=== PATIENT | male | born 1995 | race Two or more races ===

== ENCOUNTER 2025-03-01 20:53 | Emergency (ER) | payer MEDICAID ==
[~2025-03-01] VITALS: Ht 175.3 cm; Wt 108.0 kg
[2025-03-01 21:46] VITALS: O2SAT 99
[2025-03-02] MEDS: KETOROLAC 30MG/ML VIAL IM ONE
[2025-03-02 00:32] LABS: HEMATOCRIT. 45.5 % (42.0-52.0); HEMOGLOBIN. 15.2 g/dL (14.0-18.0); MEAN CORPUSCULAR HEMOGLOBIN 29.8 pg (28.0-32.0); MEAN CORPUSCULAR HGB CONC 33.5 g/dL (31.0-37.0); MEAN PLATELET VOLUME 8.4 fl (7.4-10.4); PLATELET 312 x1000/uL (130-400); RED BLOOD CELL COUNT 5.11 mill/uL (4.7-6.1); WHITE BLOOD COUNT 18.5 x1000/uL (4.5-11.0)
[2025-03-02 00:47] LABS: CHLORIDE 105 mEq/L (98-107); POTASSIUM 3.3 mEq/L (3.5-5.1); SODIUM 142 mEq/L (136-145)
[2025-03-02 00:48] LABS: CALCIUM 9.8 mg/dL (8.7-10.4); CARBON DIOXIDE 26 mEq/L (21-32)
[2025-03-02 00:50] LABS: DIFFERENTIAL COMMENT 1
[2025-03-02 00:53] LABS: CREATININE 0.9 mg/dL (0.6-1.3); GLUCOSE 107 mg/dL (70-105); UREA NITROGEN BLOOD 6 mg/dL (9-23)
[2025-03-02 00:54] LABS: TROPONIN I HIGH SENSITIVITY < 4 ng/L (3.0-53)
[2025-03-02] MEDS: HYDROXYZINE 25MG TABLET PO ONE (01:00)
[2025-03-02 02:37] LABS: TROPONIN I HIGH SENSITIVITY < 4 ng/L (3.0-53)
[2025-03-02 03:06] LABS: CLARITY URINE CLOUDY (CLEAR); COLOR URINE DARK YELLOW (YELLOW); GLUCOSE URINE NEGATIVE (NEGATIVE); KETONES URINE TRACE (NEGATIVE); LEUKOCYTE ESTERASE URINE NEGATIVE (NEGATIVE); NITRITE URINE NEGATIVE (NEGATIVE); OCCULT BLOOD URINE NEGATIVE (NEGATIVE); PH URINE 5.5 (4.5-8.0); PROTEIN URINE 2+ (NEGATIVE); SPECIFIC GRAVITY URINE 1.028 (1.005-1.030)
[2025-03-02 03:13] LABS: *AMPHETAMINES SCREEN URINE NEGATIVE (NEGATIVE); *BARBITURATES SCREEN URINE NEGATIVE (NEGATIVE); *BENZODIAZEPINES SCREEN URINE NEGATIVE (NEGATIVE); *COCAINE SCREEN URINE NEGATIVE (NEGATIVE); CANNABINOID URINE SCREEN NEGATIVE (NEGATIVE); ECSTASY MDMA SCREEN URINE NEGATIVE (NEGATIVE); METHADONE URINE SCREEN NEGATIVE (NEGATIVE); OPIATES URINE SCREEN NEGATIVE (NEGATIVE); PHENCYCLIDINE URINE SCREEN NEGATIVE (NEGATIVE)
[2025-03-02 03:51] LABS: WBC URINE 0-2 /hpf (0-2)
[2025-03-02] MEDS: KETOROLAC 30MG/ML VIAL IM NR (03:51)
[2025-03-02 03:52] LABS: BACTERIA URINE NONE SEEN; RBC URINE 0-2 /hpf (0-2); SQUAMOUS EPITHELIAL CELL URINE NONE SEEN /lpf (RARE/1+)
[2025-03-02] MEDS: HYDROXYZINE 25MG TABLET PO NR (03:55)
[2025-03-02 04:36] LABS: INFLUENZA TYPE A Presumptive Negative (Pres. Neg.); INFLUENZA TYPE B Presumptive Negative (Pres. Neg.)
[2025-03-02 04:37] LABS: RESPIRATORY SYNCYTIAL VIRUS Not Detected (Not Detectd)
[2025-03-02] MEDS: POTASSIUM CHLORIDE 20MEQ/PACKET PO ONE (04:58)
[2025-03-02 05:22] VITALS: BP 122/73; PULSE 98; RESP 18; TEMP 36.8; O2SAT 100
[2025-03-02 07:23] LABS: PLATELET ESTIMATE NORMAL
== END 2025-03-02 05:24 | disposition home or self-care (01) ==
LOC: ER 20:53
DX: D72.829 Elevated white blood cell count, unspecified (principal); Z20.822 Contact with and (suspected) exposure to COVID-19
CPT/HCPCS: 99285; 71045; 80048; 85025; 84484 ×2; 36415 ×2; 93005; 87426; 80305; 85379; 87420; 87804 ×2; 96372; 81003; J1885